=== PATIENT | female | born 1955 | race Caucasian/White ===

== ENCOUNTER 2018-01-08 14:11 | Emergency (ER) | payer OTHER ==
[~2018-01-08] VITALS: Ht 162.6 cm; Wt 113.4 kg
[2018-01-08 15:27] LABS: BASOPHILS # (AUTO) 0.1 (0.0-0.1); BASOPHILS % 0.5 % (0.0-1.0); EOSINOPHILS # (AUTO) 0.3 (0.0-0.4); EOSINOPHILS % 2.1 % (0.0-6.0); HEMOGLOBIN 11.9 g/dL (12.0-16.0); LYMPHOCYTES % 27.6 % (18.0-39.1); MEAN CORPUSCULAR HEMOGLOBIN 27.3 pg (28-32); MEAN CORPUSCULAR HGB CONC 32.2 g/dL (31-35); MEAN CORPUSCULAR VOLUME 84.9 fL (81-99); MONOCYTES # (AUTO) 1.1 (0.2-0.8); MONOCYTES % 7.3 % (4.4-11.3); NEUTROPHILS # (AUTO) 8.9 (2.1-6.9); NEUTROPHILS % 61.5 % (38.7-80.0); PLATELET COUNT 267 x10e3/uL (140-360); RED BLOOD COUNT 4.36 x10e6/uL (3.6-5.1); RED CELL DISTRIBUTION WIDTH 15.3 % (11.7-14.4)
--- NOTE | 2018-01-08 15:36 | Diagnostic Imaging Report ---
EXAMINATION: CHEST 2 VIEWS INDICATION: Leukocytosis, SOB. COMPARISON: None FINDINGS: TUBES and LINES: None. LUNGS: Bibasilar subsegmental atelectasis. There is no evidence of pneumonia or pulmonary edema. PLEURA: No pleural effusion or pneumothorax. HEART AND MEDIASTINUM: The cardiomediastinal silhouette is unremarkable. Tortuous thoracic aorta. BONES AND SOFT TISSUES: No acute osseous lesion. Degenerative changes of the thoracic spine. UPPER ABDOMEN: No free air under the diaphragm. IMPRESSION: No acute thoracic abnormality. Signed by: Dr. Grupo Maher M.D. on 01/08/2018 3:33 PM
[2018-01-08 15:38] LABS: CLARITY,URINE CLEAR (CLEAR); COLOR,URINE YELLOW (YELLOW); KETONES,URINE NEGATIVE (NEGATIVE); LEUKOCYTE ESTERASE ,URINE NEGATIVE (NEGATIVE); NITRITE,URINE NEGATIVE (NEGATIVE); PROTEIN,URINE DIPSTICK NEGATIVE (NEGATIVE)
[2018-01-08 15:39] LABS: BILIRUBIN,URINE NEGATIVE (NEGATIVE); URINE UROBILINOGEN 0.2 mg/dL (0.2 - 1)
[2018-01-08 15:43] LABS: ALANINE AMINOTRANSFERASE 19 IU/L (0-55); ALBUMIN 3.4 g/dL (3.5-5.0); ALKALINE PHOSPHATASE 74 IU/L (40-150); ANION GAP 11.7 mmol/L (8-16); BLOOD UREA NITROGEN 17 mg/dL (7-26); BUN/CREATININE RATIO 20 (6-25); CALCIUM 8.8 mg/dL (8.4-10.2); CARBON DIOXIDE 24 mmol/L (22-29); CHLORIDE 104 mmol/L (98-107); CREATININE, SERUM 0.87 mg/dL (0.57-1.11); EST GLOMERULAR FILTRATION RATE > 60 ML/MIN (60-); GLUCOSE 112 mg/dL (74-118); POTASSIUM 3.7 mmol/L (3.5-5.1); SODIUM 136 mmol/L (136-145)
[2018-01-08 15:47] LABS: WBC,URINE (MAN) 0-5 /HPF (0-5)
[2018-01-08 15:48] LABS: EPITHELIAL CELLS,URINE MANY /LPF
[2018-01-08 16:13] VITALS: BP 122/89
== END 2018-01-08 16:40 | disposition home or self-care (01) ==
LOC: ER 14:11
DX: M25.562 Pain in left knee (principal); M79.662 Pain in left lower leg; M25.572 Pain in left ankle and joints of left foot; I10 Essential (primary) hypertension; E11.9 Type 2 diabetes mellitus without complications; G98.8 Other disorders of nervous system
CPT/HCPCS: 36415; 71046; 80053; 81001; 85025; 99283

== ENCOUNTER 2022-07-20 10:19 | Inpatient (IN) | payer MEDICARE, OTHER ==
[~2022-07-20] VITALS: Ht 160 cm; Wt 111.1 kg
[2022-07-20] MEDS ORDERED: SODIUM CHLORIDE 0.9% 1000ML 1,000 ML IV SCH ×2 (11:00→12:15)
[2022-07-20] MEDS ORDERED: SODIUM CHLORIDE 0.9% 1000ML 1,000 ML ONE (11:01)
[2022-07-20] MEDS ORDERED: LACTATED RINGER'S 1,000 ML INJ ONE ×2 (11:15→12:15)
[2022-07-20] MEDS ORDERED: LACTATED RINGER'S 1,000 ML ONE (11:17)
[2022-07-20 12:09] LABS: ALBUMIN 2.5 g/dL (3.5-5.0); ALBUMIN/GLOBULIN RATIO 0.7 (0.8-2.0); CALCIUM 8.5 mg/dL (8.4-10.2); CREATININE, SERUM 2.66 mg/dL (0.57-1.11)
[2022-07-20 12:15] LABS: BASOPHILS # (AUTO) 0.1 (0.0-0.1); BASOPHILS % 0.2 % (0.0-1.0); EOSINOPHILS # (AUTO) 0.3 (0.0-0.4); EOSINOPHILS % 0.9 % (0.0-6.0); HEMATOCRIT 32.8 % (34.2-44.1); HEMOGLOBIN 9.5 g/dL (12.0-16.0); LYMPHOCYTES # (AUTO) 4.1 (1.0-3.2); LYMPHOCYTES % 12.4 % (18.0-39.1); MEAN CORPUSCULAR HEMOGLOBIN 30.1 pg (28-32); MEAN CORPUSCULAR VOLUME 103.8 fL (81-99); MONOCYTES # (AUTO) 1.7 (0.2-0.8); MONOCYTES % 5.1 % (4.4-11.3); NEUTROPHILS # (AUTO) 25.8 (2.1-6.9); NEUTROPHILS % 77.8 % (38.7-80.0); PLATELET COUNT 223 x10e3/uL (140-360); RED BLOOD COUNT 3.16 x10e6/uL (3.6-5.1); RED CELL DISTRIBUTION WIDTH 14.5 % (11.7-14.4)
[2022-07-20] MEDS ORDERED: SODIUM BICARBONATE 8.4% INJ 50 ML SYR IV STA (12:24)
[2022-07-20] MEDS ORDERED: DEXTROSE 50% SYRINGE 50 ML IV STA (12:24)
[2022-07-20] MEDS ORDERED: ALBUTEROL SULF 0.083% NEB SOLN 3 ML NEB NEB STA (12:24)
[2022-07-20] MEDS ORDERED: CALCIUM GLUCONATE 10% INJ 13.95 MEQ in SODIUM CHLORIDE 0.9% 100 ML IV ONE (12:30)
[2022-07-20] MEDS ORDERED: SOD POLYSTYRENE SULFONATE SUSP 15 GM/60 ML BTL PO ONE (12:30)
[2022-07-20] MEDS ORDERED: INSULIN REGULAR, HUMAN 100 UNIT/1 ML IV ONE (12:30)
[2022-07-20] MEDS: SODIUM CHLORIDE 0.9% 1000ML 1,000 ML IV SCH ×3 (12:30→21:51)
[2022-07-20 12:48] LABS: LYMPHOCYTES % (MANUAL) 14 % (19-48); MONOCYTES % (MANUAL) 5 % (3.4-9.0); MYELOCYTES % (MANUAL) 3 % (0-0); NEUTROPHILS % (MANUAL) 78 % (40-74)
[2022-07-20 12:49] LABS: PLATELET ESTIMATE ADEQUATE; PLATELET MORPHOLOGY COMMENT NORMAL; RBC MORPHOLOGY COMMENT NORMAL
[2022-07-20 14:40] LABS: CLARITY,URINE CLEAR (CLEAR); COLOR,URINE YELLOW (YELLOW); KETONES,URINE NEGATIVE (NEGATIVE); LEUKOCYTE ESTERASE ,URINE NEGATIVE (NEGATIVE); NITRITE,URINE NEGATIVE (NEGATIVE); PROTEIN,URINE DIPSTICK NEGATIVE (NEGATIVE); URINE UROBILINOGEN 0.2 mg/dL (0.2 - 1)
[2022-07-20 14:59] LABS: BACTERIA,URINE FEW /HPF; EPITHELIAL CELLS,URINE FEW /LPF; WBC,URINE (MAN) 0-5 /HPF (0-5)
[2022-07-20 15:05] LABS: ALBUMIN 2.4 g/dL (3.5-5.0); ALBUMIN/GLOBULIN RATIO 0.8 (0.8-2.0); ANION GAP 19.2 mmol/L (8-16); CALCIUM 8.8 mg/dL (8.4-10.2); CREATININE, SERUM 2.25 mg/dL (0.57-1.11); POTASSIUM 5.2 mmol/L (3.5-5.1)
[2022-07-20] MEDS ORDERED: CLONAZEPAM1 MG PO (16:55)
[2022-07-20] MEDS ORDERED: GABAPENTIN400 MG PO (16:56)
[2022-07-20] MEDS ORDERED: ACETAMINOPHEN-1 EAC4 PO (16:57)
[2022-07-20] MEDS ORDERED: ABILIFY5 MG PO (16:58)
[2022-07-20] MEDS ORDERED: ALLOPURINOL300 MG PO (16:58)
[2022-07-20] MEDS ORDERED: CYMBALTA30 MG PO (16:59)
[2022-07-20] MEDS ORDERED: PRAVASTATIN SOD40 MG PO (16:59)
[2022-07-20] MEDS ORDERED: B-121000 MCG PO (17:00)
[2022-07-20] MEDS ORDERED: TIZANIDINE HCL4 MG PO (17:00)
[2022-07-20] MEDS ORDERED: ATROVENT HFA12.9 GM INH (17:01)
[2022-07-20] MEDS ORDERED: VENTOLIN HFA18 GM INH (17:02)
[2022-07-20] MEDS: METRONIDAZOLE 500 MG TAB PO SCH ×2 (18:01→21:44)
[2022-07-20 18:19] VITALS: BP 92/68
[2022-07-20] MEDS ORDERED: ALBUTEROL SULFATE HFA 8GM INHALATION AEROSOL INH PRN (18:30)
[2022-07-20 18:38] VITALS: BP 87/61
[2022-07-20] MEDS: PANTOPRAZOLE SOD 40 MG TABEC PO SCH (18:52)
[2022-07-20] MEDS ORDERED: SODIUM CHLORIDE 0.9% IV ONE (19:00)
[2022-07-20] MEDS ORDERED: SODIUM CHLORIDE 0.9% 1000ML 500 ML IV ONE (19:15)
[2022-07-20 20:00] VITALS: BP 90/52
[2022-07-20] MEDS: TIZANIDINE HCL 4 MG TAB PO SCH (21:00)
[2022-07-20] MEDS: GABAPENTIN 400 MG CAP PO SCH (21:00)
[2022-07-20] MEDS: CEFTRIAXONE 2 GM in SODIUM CHLORIDE 0.9% 100 ML IV SCH (21:51)
[2022-07-21] VITALS (8 sets, daily range): BP systolic 84–101; BP diastolic 55–62
[2022-07-21 05:04] LABS: BASOPHILS # (AUTO) 0.1 (0.0-0.1); BASOPHILS % 0.3 % (0.0-1.0); EOSINOPHILS # (AUTO) 0.4 (0.0-0.4); EOSINOPHILS % 1.4 % (0.0-6.0); HEMATOCRIT 27.3 % (34.2-44.1); LYMPHOCYTES # (AUTO) 4.2 (1.0-3.2); LYMPHOCYTES % 15.9 % (18.0-39.1); MEAN CORPUSCULAR HEMOGLOBIN 30.3 pg (28-32); MEAN CORPUSCULAR HGB CONC 29.3 g/dL (31-35); MEAN CORPUSCULAR VOLUME 103.4 fL (81-99); MONOCYTES # (AUTO) 1.4 (0.2-0.8); MONOCYTES % 5.2 % (4.4-11.3); NEUTROPHILS # (AUTO) 19.4 (2.1-6.9); NEUTROPHILS % 73.4 % (38.7-80.0); PLATELET COUNT 180 x10e3/uL (140-360); RED BLOOD COUNT 2.64 x10e6/uL (3.6-5.1); RED CELL DISTRIBUTION WIDTH 14.5 % (11.7-14.4)
[2022-07-21 05:26] LABS: ALBUMIN 2.1 g/dL (3.5-5.0); ALBUMIN/GLOBULIN RATIO 0.7 (0.8-2.0); ANION GAP 15.3 mmol/L (8-16); CALCIUM 8.1 mg/dL (8.4-10.2); CREATININE, SERUM 1.46 mg/dL (0.57-1.11); POTASSIUM 5.3 mmol/L (3.5-5.1)
[2022-07-21] MEDS: IPRATROPIUM BROMIDE INHALER 12.9 GM INH INH SCH (06:00)
[2022-07-21] MEDS: PANTOPRAZOLE SOD 40 MG TABEC PO SCH (08:19)
[2022-07-21] MEDS ORDERED: NON-FORMULARY MEDICATION (Acetaminophen With Codeine (Acetaminophen-Cod #4 Tablet) 1 TAB) PO SCH (09:00)
[2022-07-21] MEDS ORDERED: DULOXETINE HCL 30 MG DELAYED RELEASE PO SCH (09:00)
[2022-07-21] MEDS ORDERED: ACETAMINOPHEN/CODEINE 300MG - 30MG TAB PO SCH (09:00)
[2022-07-21] MEDS: ACETAMINOPHEN/CODEINE 300MG - 30MG TAB PO SCH ×3 (09:00→16:21)
[2022-07-21] MEDS: TIZANIDINE HCL 4 MG TAB PO SCH ×4 (09:00→21:00)
[2022-07-21] MEDS ORDERED: NON-FORMULARY MEDICATION (Aripiprazole (Abilify) 5 MG) PO SCH (09:00)
[2022-07-21] MEDS ORDERED: ARIPIPRAZOLE 5 MG TABLET PO SCH (09:00)
[2022-07-21] MEDS: CLONAZEPAM 1 MG TAB PO SCH ×2 (09:50→17:48)
[2022-07-21] MEDS: ALLOPURINOL 300 MG TAB PO SCH (09:50)
[2022-07-21] MEDS: METRONIDAZOLE 500 MG TAB PO SCH (09:50)
[2022-07-21] MEDS: GABAPENTIN 400 MG CAP PO SCH ×4 (09:50→21:00)
[2022-07-21] MEDS: CEFTRIAXONE 2 GM in SODIUM CHLORIDE 0.9% 100 ML IV SCH (09:50)
[2022-07-21] MEDS: VANCOMYCIN HCL 125 MG CAPSULE PO SCH ×3 (12:31→23:09)
[2022-07-21] MEDS: SODIUM CHLORIDE 0.9% 1000ML 1,000 ML IV SCH ×2 (12:31→21:20)
[2022-07-21] MEDS ORDERED: POTASSIUM CHLO10 ME1 PO (13:22)
[2022-07-21] MEDS ORDERED: MELOXICAM7.5 MG PO (13:22)
[2022-07-21] MEDS ORDERED: PROTONIX20 MG PO (13:22)
[2022-07-21] MEDS ORDERED: FUROSEMIDE20 MG PO (13:22)
[2022-07-21] MEDS: METRONIDAZOLE 500MG/NS 100ML 100 ML IV SCH ×2 (14:21→21:19)
[2022-07-21] MEDS: ARIPIPRAZOLE 5 MG TABLET PO SCH (21:00)
[2022-07-21] MEDS: DULOXETINE HCL 30 MG DELAYED RELEASE PO SCH (21:00)
[2022-07-22] VITALS (7 sets, daily range): BP systolic 86–102; BP diastolic 41–62
[2022-07-22] MEDS: SODIUM CHLORIDE 0.9% 1000ML 1,000 ML IV SCH ×2 (03:16→13:37)
[2022-07-22 04:56] LABS: BASOPHILS # (AUTO) 0.1 (0.0-0.1); BASOPHILS % 0.3 % (0.0-1.0); EOSINOPHILS # (AUTO) 0.4 (0.0-0.4); EOSINOPHILS % 1.7 % (0.0-6.0); HEMATOCRIT 24.3 % (34.2-44.1); HEMOGLOBIN 7.4 g/dL (12.0-16.0); LYMPHOCYTES # (AUTO) 4.4 (1.0-3.2); LYMPHOCYTES % 21.6 % (18.0-39.1); MEAN CORPUSCULAR HEMOGLOBIN 30.5 pg (28-32); MEAN CORPUSCULAR HGB CONC 30.5 g/dL (31-35); MONOCYTES # (AUTO) 0.9 (0.2-0.8); MONOCYTES % 4.4 % (4.4-11.3); NEUTROPHILS # (AUTO) 13.6 (2.1-6.9); NEUTROPHILS % 67.3 % (38.7-80.0); PLATELET COUNT 176 x10e3/uL (140-360); RED BLOOD COUNT 2.43 x10e6/uL (3.6-5.1); RED CELL DISTRIBUTION WIDTH 14.8 % (11.7-14.4)
[2022-07-22 05:14] LABS: ANION GAP 16.6 mmol/L (8-16); CREATININE, SERUM 1.28 mg/dL (0.57-1.11); POTASSIUM 4.6 mmol/L (3.5-5.1)
[2022-07-22] MEDS: METRONIDAZOLE 500MG/NS 100ML 100 ML IV SCH ×3 (05:21→21:14)
[2022-07-22] MEDS: VANCOMYCIN HCL 125 MG CAPSULE PO SCH ×4 (05:21→23:12)
[2022-07-22] MEDS: TIZANIDINE HCL 4 MG TAB PO SCH ×3 (09:00→21:00)
[2022-07-22] MEDS: CLONAZEPAM 1 MG TAB PO SCH ×2 (09:29→17:15)
[2022-07-22] MEDS: ALLOPURINOL 300 MG TAB PO SCH (09:29)
[2022-07-22] MEDS: PANTOPRAZOLE SOD 40 MG TABEC PO SCH (09:29)
[2022-07-22] MEDS: GABAPENTIN 400 MG CAP PO SCH ×4 (09:29→21:00)
[2022-07-22] MEDS: DULOXETINE HCL 30 MG DELAYED RELEASE PO SCH (09:29)
[2022-07-22] MEDS: ARIPIPRAZOLE 5 MG TABLET PO SCH (09:29)
[2022-07-22] MEDS: ACETAMINOPHEN/CODEINE 300MG - 30MG TAB PO SCH ×2 (09:36→17:00)
[2022-07-22] MEDS: IPRATROPIUM BROMIDE INHALER 12.9 GM INH INH SCH (10:22)
[2022-07-22 11:49] LABS: THYROID STIMULATING HORMONE 0.015 uIU/mL (0.350-4.940)
[2022-07-22] MEDS: IRON SUCROSE 100 MG in SODIUM CHLORIDE 0.9% 100 ML IV SCH (14:28)
[2022-07-22] MEDS: MIDODRINE 2.5 MG TAB PO SCH ×2 (14:28→17:15)
[2022-07-22] MEDS: SODIUM BICARBONATE 650 MG TAB PO SCH ×2 (14:28→17:00)
[2022-07-22] MEDS: POLYETHYLENE GLYCOL 3350 17 GM PACK PO SCH (17:14)
[2022-07-22] MEDS: DOCUSATE SODIUM LIQD 100 MG/10 ML UDC NG SCH (17:15)
[2022-07-23] VITALS (8 sets, daily range): BP systolic 77–130; BP diastolic 47–99
[2022-07-23] MEDS: SODIUM CHLORIDE 0.9% 1000ML 1,000 ML IV SCH (02:57)
[2022-07-23] MEDS: METRONIDAZOLE 500MG/NS 100ML 100 ML IV SCH ×2 (05:48→14:00)
[2022-07-23] MEDS: VANCOMYCIN HCL 125 MG CAPSULE PO SCH ×3 (05:48→17:56)
[2022-07-23 06:07] LABS: ANION GAP 12.1 mmol/L (8-16); CALCIUM 8.2 mg/dL (8.4-10.2); CREATININE, SERUM 0.8 mg/dL (0.57-1.11); POTASSIUM 4.1 mmol/L (3.5-5.1)
[2022-07-23] MEDS: IPRATROPIUM BROMIDE INHALER 12.9 GM INH INH SCH (07:17)
[2022-07-23 07:42] LABS: LYMPHOCYTES % (MANUAL) 21 % (19-48); MONOCYTES % (MANUAL) 3 % (3.4-9.0); NEUTROPHILS % (MANUAL) 76 % (40-74); PLATELET ESTIMATE ADEQUATE; PLATELET MORPHOLOGY COMMENT NORMAL; RBC MORPHOLOGY COMMENT NORMAL
[2022-07-23 08:00] LABS: BASOPHILS % 0.2 % (0.0-1.0); EOSINOPHILS # (AUTO) 0.4 (0.0-0.4); EOSINOPHILS % 2.2 % (0.0-6.0); HEMATOCRIT 25.5 % (34.2-44.1); HEMOGLOBIN 7.4 g/dL (12.0-16.0); LYMPHOCYTES # (AUTO) 4.2 (1.0-3.2); LYMPHOCYTES % 26.7 % (18.0-39.1); MEAN CORPUSCULAR HEMOGLOBIN 30.3 pg (28-32); MEAN CORPUSCULAR VOLUME 104.5 fL (81-99); MONOCYTES # (AUTO) 0.9 (0.2-0.8); NEUTROPHILS # (AUTO) 9.4 (2.1-6.9); NEUTROPHILS % 60.1 % (38.7-80.0); PLATELET COUNT 176 x10e3/uL (140-360); RED BLOOD COUNT 2.44 x10e6/uL (3.6-5.1); RED CELL DISTRIBUTION WIDTH 14.8 % (11.7-14.4)
[2022-07-23] MEDS: DULOXETINE HCL 30 MG DELAYED RELEASE PO SCH ×2 (09:00→13:55)
[2022-07-23] MEDS: POLYETHYLENE GLYCOL 3350 17 GM PACK PO SCH ×2 (09:00→17:00)
[2022-07-23] MEDS: DOCUSATE SODIUM LIQD 100 MG/10 ML UDC NG SCH ×3 (09:00→17:00)
[2022-07-23] MEDS: GABAPENTIN 400 MG CAP PO SCH ×4 (09:00→20:19)
[2022-07-23] MEDS ORDERED: ACETAMINOPHEN 325 MG TAB PO STA (09:03)
[2022-07-23] MEDS ORDERED: SODIUM CHLORIDE 0.9% 250ML 250 ML IV ONE (09:15)
[2022-07-23] MEDS ORDERED: FUROSEMIDE INJ 10 MG/ML 2 ML VIAL IV PRN (09:15)
[2022-07-23] MEDS: MIDODRINE 2.5 MG TAB PO SCH ×3 (12:00→16:00)
[2022-07-23] MEDS: ALLOPURINOL 300 MG TAB PO SCH (13:52)
[2022-07-23] MEDS: ACETAMINOPHEN/CODEINE 300MG - 30MG TAB PO SCH ×2 (13:52→17:00)
[2022-07-23] MEDS: SODIUM BICARBONATE 650 MG TAB PO SCH ×2 (13:53→17:00)
[2022-07-23] MEDS: PANTOPRAZOLE SOD 40 MG TABEC PO SCH (13:53)
[2022-07-23] MEDS: CLONAZEPAM 1 MG TAB PO SCH ×2 (13:53→17:00)
[2022-07-23] MEDS: ARIPIPRAZOLE 5 MG TABLET PO SCH (13:54)
[2022-07-23] MEDS: TIZANIDINE HCL 4 MG TAB PO SCH ×2 (13:54→15:00)
[2022-07-23] MEDS: IRON SUCROSE 100 MG in SODIUM CHLORIDE 0.9% 100 ML IV SCH (14:38)
[2022-07-23] MEDS ORDERED: SODIUM CHLORIDE 0.9% 250ML 250 ML ONE (21:15)
[2022-07-24] VITALS (7 sets, daily range): BP systolic 107–135; BP diastolic 58–81
[2022-07-24] MEDS: VANCOMYCIN HCL 125 MG CAPSULE PO SCH ×5 (00:23→22:42)
[2022-07-24] MEDS: METRONIDAZOLE 500MG/NS 100ML 100 ML IV SCH ×4 (00:23→22:42)
[2022-07-24] MEDS ORDERED: SODIUM CHLORIDE 0.9% 250ML 250 ML ONE (02:28)
[2022-07-24] MEDS ORDERED: FUROSEMIDE INJ 10 MG/ML 2 ML VIAL IV ONE (08:00)
[2022-07-24 08:09] LABS: BASOPHILS # (AUTO) 0.1 (0.0-0.1); BASOPHILS % 0.3 % (0.0-1.0); EOSINOPHILS # (AUTO) 0.4 (0.0-0.4); EOSINOPHILS % 2.4 % (0.0-6.0); HEMATOCRIT 30.1 % (34.2-44.1); HEMOGLOBIN 9.2 g/dL (12.0-16.0); LYMPHOCYTES # (AUTO) 3.3 (1.0-3.2); LYMPHOCYTES % 18.7 % (18.0-39.1); MEAN CORPUSCULAR HEMOGLOBIN 30.2 pg (28-32); MEAN CORPUSCULAR HGB CONC 30.6 g/dL (31-35); MEAN CORPUSCULAR VOLUME 98.7 fL (81-99); MONOCYTES # (AUTO) 0.9 (0.2-0.8); MONOCYTES % 4.9 % (4.4-11.3); NEUTROPHILS # (AUTO) 12.3 (2.1-6.9); NEUTROPHILS % 69.3 % (38.7-80.0); PLATELET COUNT 164 x10e3/uL (140-360); RED BLOOD COUNT 3.05 x10e6/uL (3.6-5.1); RED CELL DISTRIBUTION WIDTH 14.5 % (11.7-14.4)
[2022-07-24 08:31] LABS: ANION GAP 13.9 mmol/L (8-16); CALCIUM 8.4 mg/dL (8.4-10.2); CREATININE, SERUM 0.85 mg/dL (0.57-1.11); POTASSIUM 3.9 mmol/L (3.5-5.1)
[2022-07-24] MEDS: DOCUSATE SODIUM LIQD 100 MG/10 ML UDC NG SCH ×2 (09:00→16:50)
[2022-07-24] MEDS: POLYETHYLENE GLYCOL 3350 17 GM PACK PO SCH ×2 (09:00→16:49)
[2022-07-24] MEDS: GABAPENTIN 400 MG CAP PO SCH ×4 (09:11→22:42)
[2022-07-24] MEDS: DULOXETINE HCL 30 MG DELAYED RELEASE PO SCH (09:11)
[2022-07-24] MEDS: SODIUM BICARBONATE 650 MG TAB PO SCH ×2 (09:11→16:49)
[2022-07-24] MEDS: ACETAMINOPHEN/CODEINE 300MG - 30MG TAB PO SCH ×2 (09:12→16:49)
[2022-07-24] MEDS: ARIPIPRAZOLE 5 MG TABLET PO SCH (09:12)
[2022-07-24] MEDS: MIDODRINE 2.5 MG TAB PO SCH ×3 (09:12→16:50)
[2022-07-24] MEDS: ALLOPURINOL 300 MG TAB PO SCH (09:12)
[2022-07-24] MEDS: PANTOPRAZOLE SOD 40 MG TABEC PO SCH (09:12)
[2022-07-24] MEDS: IRON SUCROSE 100 MG in SODIUM CHLORIDE 0.9% 100 ML IV SCH (11:22)
[2022-07-25] VITALS: BP 132/81
[2022-07-25 04:00] VITALS: BP 132/79
[2022-07-25] MEDS: VANCOMYCIN HCL 125 MG CAPSULE PO SCH (05:56)
[2022-07-25] MEDS: METRONIDAZOLE 500MG/NS 100ML 100 ML IV SCH (05:57)
[2022-07-25 06:07] LABS: CALCIUM 8.6 mg/dL (8.4-10.2); CREATININE, SERUM 0.72 mg/dL (0.57-1.11)
[2022-07-25] MEDS: IPRATROPIUM BROMIDE INHALER 12.9 GM INH INH SCH (06:30)
[2022-07-25 06:59] LABS: BASOPHILS # (AUTO) 0.1 (0.0-0.1); BASOPHILS % 0.5 % (0.0-1.0); EOSINOPHILS # (AUTO) 0.3 (0.0-0.4); EOSINOPHILS % 2.4 % (0.0-6.0); HEMATOCRIT 31.6 % (34.2-44.1); HEMOGLOBIN 9.7 g/dL (12.0-16.0); LYMPHOCYTES # (AUTO) 3.2 (1.0-3.2); LYMPHOCYTES % 23.2 % (18.0-39.1); MEAN CORPUSCULAR HEMOGLOBIN 30.7 pg (28-32); MEAN CORPUSCULAR HGB CONC 30.7 g/dL (31-35); MONOCYTES # (AUTO) 0.8 (0.2-0.8); MONOCYTES % 5.9 % (4.4-11.3); NEUTROPHILS # (AUTO) 8.8 (2.1-6.9); NEUTROPHILS % 64.5 % (38.7-80.0); PLATELET COUNT 140 x10e3/uL (140-360); RED BLOOD COUNT 3.16 x10e6/uL (3.6-5.1); RED CELL DISTRIBUTION WIDTH 14.7 % (11.7-14.4)
[2022-07-25] MEDS: DOCUSATE SODIUM LIQD 100 MG/10 ML UDC NG SCH (07:42)
[2022-07-25] MEDS: POLYETHYLENE GLYCOL 3350 17 GM PACK PO SCH (07:43)
[2022-07-25] MEDS: DULOXETINE HCL 30 MG DELAYED RELEASE PO SCH (08:45)
[2022-07-25] MEDS: PANTOPRAZOLE SOD 40 MG TABEC PO SCH (08:46)
[2022-07-25] MEDS: ARIPIPRAZOLE 5 MG TABLET PO SCH (08:46)
[2022-07-25] MEDS: ALLOPURINOL 300 MG TAB PO SCH (08:46)
[2022-07-25] MEDS: ACETAMINOPHEN/CODEINE 300MG - 30MG TAB PO SCH (08:46)
[2022-07-25] MEDS: GABAPENTIN 400 MG CAP PO SCH (08:46)
[2022-07-25] MEDS: SODIUM BICARBONATE 650 MG TAB PO SCH (08:47)
[2022-07-25] MEDS: MIDODRINE 2.5 MG TAB PO SCH (08:49)
[2022-07-25 08:51] VITALS: BP 121/75
[2022-07-25 08:52] VITALS: BP 121/75
== END 2022-07-25 09:46 | disposition home or self-care (01) | DRG 871 ==
LOC: ER 10:39 → ERHOLD 12:31 → MED/SURG2 17:25
PROVIDERS: ADMIT Internal Medicine; ATTEND Internal Medicine
PROC: 3E03329 Introduction of Other Anti-infective into Peripheral Vein, Percutaneous Approach (ICD-10-PCS; 2022-07-20)
PROC: 3E03329 Introduction of Other Anti-infective into Peripheral Vein, Percutaneous Approach (ICD-10-PCS; 2022-07-20)
PROC: 3E03329 Introduction of Other Anti-infective into Peripheral Vein, Percutaneous Approach (ICD-10-PCS; 2022-07-21)
PROC: 3E03329 Introduction of Other Anti-infective into Peripheral Vein, Percutaneous Approach (ICD-10-PCS; 2022-07-21)
PROC: 3E03329 Introduction of Other Anti-infective into Peripheral Vein, Percutaneous Approach (ICD-10-PCS; 2022-07-22)
PROC: 30233N1 Transfusion of Nonautologous Red Blood Cells into Peripheral Vein, Percutaneous Approach (ICD-10-PCS; principal; 2022-07-23)
PROC: 3E03329 Introduction of Other Anti-infective into Peripheral Vein, Percutaneous Approach (ICD-10-PCS; 2022-07-23)
PROC: 3E03329 Introduction of Other Anti-infective into Peripheral Vein, Percutaneous Approach (ICD-10-PCS; 2022-07-24)
PROC: 3E03329 Introduction of Other Anti-infective into Peripheral Vein, Percutaneous Approach (ICD-10-PCS; 2022-07-25)
DX: A41.9 Sepsis, unspecified organism (principal); U07.1 COVID-19; N17.9 Acute kidney failure, unspecified; A09 Infectious gastroenteritis and colitis, unspecified; Z68.41 Body mass index [BMI] 40.0-44.9, adult; E87.5 Hyperkalemia; E86.0 Dehydration; E66.01 Morbid (severe) obesity due to excess calories; I95.1 Orthostatic hypotension; K57.90 Diverticulosis of intestine, part unspecified, without perforation or abscess without bleeding; F32.A Depression, unspecified; N18.30 Chronic kidney disease, stage 3 unspecified; J44.9 Chronic obstructive pulmonary disease, unspecified; E11.42 Type 2 diabetes mellitus with diabetic polyneuropathy; K21.9 Gastro-esophageal reflux disease without esophagitis; I12.9 Hypertensive chronic kidney disease with stage 1 through stage 4 chronic kidney disease, or unspecified chronic kidney disease; F10.21 Alcohol dependence, in remission; B18.2 Chronic viral hepatitis C; D50.0 Iron deficiency anemia secondary to blood loss (chronic); F11.11 Opioid abuse, in remission; K59.09 Other constipation; M51.9 Unspecified thoracic, thoracolumbar and lumbosacral intervertebral disc disorder; M54.9 Dorsalgia, unspecified; F17.210 Nicotine dependence, cigarettes, uncomplicated; E78.5 Hyperlipidemia, unspecified; G89.29 Other chronic pain; E11.22 Type 2 diabetes mellitus with diabetic chronic kidney disease; G47.30 Sleep apnea, unspecified; F41.9 Anxiety disorder, unspecified; M79.7 Fibromyalgia; Z87.828 Personal history of other (healed) physical injury and trauma; Z79.2 Long term (current) use of antibiotics; Z79.891 Long term (current) use of opiate analgesic; Z79.1 Long term (current) use of non-steroidal anti-inflammatories (NSAID); Z79.899 Other long term (current) drug therapy; Z98.890 Other specified postprocedural states
CPT/HCPCS: 36415; 71045; 74176; 80048; 80053; 81001; 82607; 82746; 82948; 83540; 83605; 83735; 83880; 84443; 84466; 85025; 86850; 86900; 86920; 87040; 87086; 93005; 94640; 94664; 94799; 99252; 99285; J0610; J0692; J0696; J1756; J1817; J1940; J7030; J7050; J7121; J7799; P9016

== ENCOUNTER → 2022-12-17 | Outpatient (CLI) | payer MEDICARE, OTHER ==
[~2022-12-17] MED LIST: ABILIFY5 MG PO; ACETAMINOPHEN-1 EAC4 PO; ALLOPURINOL300 MG PO; ATROVENT HFA12.9 GM INH; B-121000 MCG PO; CLONAZEPAM1 MG PO; CYMBALTA30 MG PO; FUROSEMIDE20 MG PO; GABAPENTIN400 MG PO; MELOXICAM7.5 MG PO; POTASSIUM CHLO10 ME1 PO; PRAVASTATIN SOD40 MG PO; PROTONIX20 MG PO; TIZANIDINE HCL4 MG PO; VENTOLIN HFA18 GM INH
== END ==
LOC: RAD 09:32
PROVIDERS: ATTEND Internal Medicine
DX: M53.3 Sacrococcygeal disorders, not elsewhere classified (principal); Z91.81 History of falling
CPT/HCPCS: 72220